=== PATIENT | male | born 1960 | race Caucasian/White ===

== ENCOUNTER 2020-06-29 12:31 | Inpatient (IN) ==
[2020-06-29 13:58] LABS: Basophils # 0.1 K/mcL (0.0-0.2); Basophils % 0.4 %; Eosinophils # 0.1 K/mcL (0.0-0.6); Eosinophils % 0.7 %; Hematocrit 43.9 % (37.5-50.1); Hemoglobin 14.3 g/dL (12.9-16.9); Immature Granulocytes % 0.7 % (0-4); Lymphocytes % 13.4 %; Mean Corpuscular HGB Conc 32.6 g/dL (31.6-35.5); Mean Corpuscular Volume 92.2 fL (83.0-100.0); Mean Platelet Volume 9.2 fL (9.4-12.4); Monocytes # 1.1 K/mcL (0.0-1.3); Monocytes % 7.7 %; Neutrophils # 11.5 K/mcL (1.6-8.9); Platelet Count 455 K/mcL (140-400); Red Blood Count 4.76 M/mcL (4.19-5.50); Red Cell Distribution Width 13.2 % (11.5-14.5); Segmented Neutrophils % 77.1 %; White Blood Count 14.9 K/mcL (4.3-11.1)
[2020-06-29 14:35] LABS: BUN/Creatinine Ratio 12 (6-26); Blood Urea Nitrogen 9 mg/dL (8-23); Calcium 8.6 mg/dL (8.6-10.3); Carbon Dioxide 23 mEq/L (23-29); Chloride 105 mEq/L (98-107); Glucose 117 mg/dL (70-105); Osmolality,Calculated 284 (280-300); Potassium 4.1 mEq/L (3.5-5.1); Sodium 137 mEq/L (136-145); eGFR For African Americans > 60 (> 60); eGFR For Non-African Americans > 60 (> 60)
[2020-06-29] MEDS ORDERED: Isovue-370 500 ML BOTTLE IVP ONE (16:06)
[2020-06-29] MEDS ORDERED: Piperacillin/Tazobactam 3.375 GM in 0.9 % Sodium Chloride Mini Bag 100 ML IVPB SCH (17:00)
[2020-06-29] MEDS ORDERED: Vancomycin 1,500 MG/265 ML IV.SOLN IVPB STA (17:44)
[2020-06-29] MEDS ORDERED: *HR* Heparin 5,000 UNIT/ML VIAL IVP ONE (17:53)
[2020-06-29] MEDS ORDERED: *HR* Heparin 5,000 UNIT/ML VIAL IVP PRN ×2 (17:53)
[2020-06-29] MEDS ORDERED: Piperacillin/Tazobactam 3.375 GM in 0.9 % Sodium Chloride Mini Bag 100 ML IVPB ONE (18:00)
[2020-06-29 18:25] LABS: Mean Corpuscular HGB Conc 31.8 g/dL (31.6-35.5); Mean Corpuscular Volume 94.2 fL (83.0-100.0); Mean Platelet Volume 8.7 fL (9.4-12.4); Platelet Count 421 K/mcL (140-400); Red Blood Count 4.67 M/mcL (4.19-5.50); Red Cell Distribution Width 13.3 % (11.5-14.5); White Blood Count 11.5 K/mcL (4.3-11.1)
[2020-06-29 18:35] LABS: INR 1.1; Prothrombin Time 13.2 Seconds (9.4-12.1)
[2020-06-29] MEDS: Heparin 25,000UNIT/250ML 1/2NS 25,000 UNIT/250 ML IV.SOLN IVC SCH (18:35)
[2020-06-29 18:36] LABS: Heparin anti-factor XA UFH < 0.04 IU/mL (0.30-0.70)
[2020-06-29] MEDS ORDERED: Ondansetron 4 MG/2 ML VIAL IVP PRN (21:38)
[2020-06-29] MEDS ORDERED: Acetaminophen 325 MG TABLET PO PRN (21:38)
[2020-06-29] MEDS ORDERED: Melatonin 3 MG TABLET PO PRN (21:38)
[2020-06-29] MEDS ORDERED: Naloxone 0.4 MG/ML INJ IVP PRN (21:38)
[2020-06-30] MEDS: Piperacillin/Tazobactam 3.375 GM in 0.9 % Sodium Chloride Mini Bag 100 ML IVPB SCH ×4 (01:54→23:25)
[2020-06-30] MEDS: Vancomycin 1,250 MG/262.5 ML IV.SOLN IVPB SCH ×2 (06:18→17:10)
[2020-06-30] MEDS: Heparin 25,000UNIT/250ML 1/2NS 25,000 UNIT/250 ML IV.SOLN IVC SCH (11:37)
[2020-07-01] MEDS ORDERED: Haloperidol Lactate 5 MG/ML VIAL IVP ONE (01:55)
[2020-07-01] MEDS: Heparin 25,000UNIT/250ML 1/2NS 25,000 UNIT/250 ML IV.SOLN IVC SCH ×2 (02:07→16:27)
[2020-07-01] MEDS: Vancomycin 1,250 MG/262.5 ML IV.SOLN IVPB SCH (04:50)
[2020-07-01 05:34] LABS: Basophils # 0.1 K/mcL (0.0-0.2); Basophils % 0.6 %; Eosinophils # 0.2 K/mcL (0.0-0.6); Eosinophils % 1.3 %; Hematocrit 40.4 % (37.5-50.1); Hemoglobin 12.9 g/dL (12.9-16.9); Immature Granulocytes % 0.8 % (0-4); Lymphocytes # 2.4 K/mcL (0.6-4.6); Lymphocytes % 16.9 %; Mean Corpuscular HGB Conc 31.9 g/dL (31.6-35.5); Mean Corpuscular Hemoglobin 29.9 pg (28.0-33.3); Mean Corpuscular Volume 93.5 fL (83.0-100.0); Mean Platelet Volume 9.3 fL (9.4-12.4); Monocytes # 1.2 K/mcL (0.0-1.3); Monocytes % 8.6 %; Neutrophils # 10.3 K/mcL (1.6-8.9); Platelet Count 425 K/mcL (140-400); Red Blood Count 4.32 M/mcL (4.19-5.50); Red Cell Distribution Width 13.3 % (11.5-14.5); Segmented Neutrophils % 71.8 %; White Blood Count 14.4 K/mcL (4.3-11.1)
[2020-07-01] MEDS ORDERED: *HR* LORazepam 2 MG/ML VIAL IVP ONE (05:55)
[2020-07-01] MEDS: Aspirin Enteric Coated 81 MG Tablet PO SCH (09:01)
[2020-07-01] MEDS: Piperacillin/Tazobactam 3.375 GM in 0.9 % Sodium Chloride Mini Bag 100 ML IVPB SCH ×2 (09:02→15:58)
[2020-07-01 09:56] LABS: BUN/Creatinine Ratio 17 (6-26); Blood Urea Nitrogen 13 mg/dL (8-23); Carbon Dioxide 24 mEq/L (23-29); Chloride 109 mEq/L (98-107); Glucose 124 mg/dL (70-105); Osmolality,Calculated 290 (280-300); Sodium 139 mEq/L (136-145); eGFR For African Americans > 60 (> 60); eGFR For Non-African Americans > 60 (> 60)
[2020-07-02] MEDS: Piperacillin/Tazobactam 3.375 GM in 0.9 % Sodium Chloride Mini Bag 100 ML IVPB SCH ×4 (00:27→23:17)
[2020-07-02 00:36] LABS: Basophils # 0.1 K/mcL (0.0-0.2); Basophils % 0.6 %; Eosinophils # 0.2 K/mcL (0.0-0.6); Eosinophils % 1.6 %; Hematocrit 39.9 % (37.5-50.1); Hemoglobin 12.8 g/dL (12.9-16.9); Immature Granulocytes % 0.6 % (0-4); Lymphocytes # 2.4 K/mcL (0.6-4.6); Lymphocytes % 17.2 %; Mean Corpuscular HGB Conc 32.1 g/dL (31.6-35.5); Mean Corpuscular Hemoglobin 30.6 pg (28.0-33.3); Mean Corpuscular Volume 95.5 fL (83.0-100.0); Monocytes # 1.2 K/mcL (0.0-1.3); Monocytes % 8.3 %; Platelet Count 397 K/mcL (140-400); Red Blood Count 4.18 M/mcL (4.19-5.50); Red Cell Distribution Width 13.4 % (11.5-14.5); Segmented Neutrophils % 71.7 %
[2020-07-02 00:53] LABS: BUN/Creatinine Ratio 19 (6-26); Blood Urea Nitrogen 14 mg/dL (8-23); Carbon Dioxide 22 mEq/L (23-29); Chloride 108 mEq/L (98-107); Glucose 104 mg/dL (70-105); Osmolality,Calculated 285 (280-300); Potassium 4.1 mEq/L (3.5-5.1); Sodium 137 mEq/L (136-145); eGFR For African Americans > 60 (> 60); eGFR For Non-African Americans > 60 (> 60)
[2020-07-02] MEDS: Heparin 25,000UNIT/250ML 1/2NS 25,000 UNIT/250 ML IV.SOLN IVC SCH (05:21)
[2020-07-02] MEDS: Aspirin Enteric Coated 81 MG Tablet PO SCH (08:24)
[2020-07-02] MEDS ORDERED: Heparin 1,000 UNITS/500 mL 500 ML ONE ×2 (11:33→13:21)
[2020-07-02] MEDS ORDERED: *HR* Heparin 10,000 UNIT/10 ML VIAL ONE (11:33)
[2020-07-02] MEDS ORDERED: 0.9 % Sodium Chloride 2,000 ML ONE (11:33)
[2020-07-02] MEDS ORDERED: Isovue-300 200 mL Infus..BTL ONE (11:34)
[2020-07-02] MEDS ORDERED: *HR* Midazolam HCl 2 MG/2 ML VIAL ONE ×2 (11:52→13:17)
[2020-07-02] MEDS ORDERED: *HR* FentaNYL (PF) 100 MCG/2 ML VIAL ONE ×2 (11:53→13:37)
[2020-07-02] MEDS ORDERED: *HR* Labetalol 100 MG/20 ML MDV ONE (12:48)
[2020-07-02] MEDS ORDERED: Haloperidol Lactate 5 MG/ML VIAL IVP ONE (14:28)
[2020-07-02] MEDS ORDERED: Prochlorperazine 10 MG/2 ML VIAL ONE (14:45)
[2020-07-02] MEDS: Prochlorperazine 10 MG/2 ML VIAL IVP ONE ×2 (14:47→14:50)
[2020-07-02] MEDS ORDERED: *HR* HYDROcodone/Acet 5/325 mg TABLET PO PRN (14:48)
[2020-07-02] MEDS ORDERED: *HR* Atropine Sulfate 1 MG/10 ML SYRINGE ONE (15:01)
[2020-07-02] MEDS ORDERED: *HR* Labetalol 20 MG/4 ML SYRINGE IVP ONE ×2 (15:03)
[2020-07-02] MEDS: Dexmedetomidine HCl 400 MCG/100 ML MLS IVC SCH ×2 (15:14→19:35)
[2020-07-02] MEDS ORDERED: Ziprasidone 20 MG in Water for inj. (sterile) 1 ML IM ONE (15:44)
[2020-07-02] MEDS: Ipratropium/Albuterol Neb 3 ML IH SCH ×3 (16:09→23:44)
[2020-07-03] MEDS: Ipratropium/Albuterol Neb 3 ML IH SCH ×6 (04:04→23:02)
[2020-07-03 05:08] LABS: Basophils # 0.1 K/mcL (0.0-0.2); Basophils % 0.4 %; Eosinophils # 0.2 K/mcL (0.0-0.6); Eosinophils % 1.6 %; Hematocrit 42.5 % (37.5-50.1); Hemoglobin 13.2 g/dL (12.9-16.9); Immature Granulocytes % 0.5 % (0-4); Lymphocytes # 1.5 K/mcL (0.6-4.6); Mean Corpuscular HGB Conc 31.1 g/dL (31.6-35.5); Mean Corpuscular Hemoglobin 29.7 pg (28.0-33.3); Mean Corpuscular Volume 95.7 fL (83.0-100.0); Mean Platelet Volume 8.6 fL (9.4-12.4); Monocytes # 0.9 K/mcL (0.0-1.3); Monocytes % 7.8 %; Neutrophils # 8.9 K/mcL (1.6-8.9); Platelet Count 358 K/mcL (140-400); Red Blood Count 4.44 M/mcL (4.19-5.50); Red Cell Distribution Width 13.4 % (11.5-14.5); Segmented Neutrophils % 76.7 %; White Blood Count 11.6 K/mcL (4.3-11.1)
[2020-07-03 05:29] LABS: BUN/Creatinine Ratio 14 (6-26); Blood Urea Nitrogen 11 mg/dL (8-23); Calcium 8.2 mg/dL (8.6-10.3); Carbon Dioxide 22 mEq/L (23-29); Chloride 111 mEq/L (98-107); Glucose 126 mg/dL (70-105); Osmolality,Calculated 295 (280-300); Sodium 142 mEq/L (136-145); Vancomycin,Trough 10 mcg/mL (5-10); eGFR For African Americans > 60 (> 60); eGFR For Non-African Americans > 60 (> 60)
[2020-07-03] MEDS ORDERED: Vancomycin 1,250 MG/262.5 ML IV.SOLN IVPB SCH (06:00)
[2020-07-03] MEDS ORDERED: Heparin 1,000 UNITS/500 mL 500 ML ONE ×3 (07:04→11:01)
[2020-07-03] MEDS ORDERED: *HR* Rocuronium Bromide 50 MG/5 ML VIAL ONE (07:11)
[2020-07-03] MEDS ORDERED: *HR* Midazolam HCl 2 MG/2 ML VIAL ONE (07:11)
[2020-07-03] MEDS ORDERED: Dexamethasone 4 MG/ML VIAL ONE (07:11)
[2020-07-03] MEDS ORDERED: Lidocaine -MPF 2% 2 ML VIAL ONE (07:11)
[2020-07-03] MEDS ORDERED: Ondansetron 4 MG/2 ML VIAL ONE (07:11)
[2020-07-03] MEDS ORDERED: *HR* Propofol 200 MG/20 ML VIAL IVP ONE (07:11)
[2020-07-03] MEDS ORDERED: Lidocaine HCL 4 ML Topical Solution (Laryng-O-Jet Kit Sterile Pak) TP ONE (07:11)
[2020-07-03] MEDS ORDERED: *HR* FentaNYL (PF) 100 MCG/2 ML VIAL ONE ×2 (07:11→12:02)
[2020-07-03] MEDS ORDERED: Ondansetron 4 MG/2 ML VIAL IVP PRN ×2 (07:14→14:08)
[2020-07-03] MEDS ORDERED: *HR* HYDROmorphone PF 0.5 MG/0.5 ML SYRINGE IVP PRN ×2 (07:14→14:08)
[2020-07-03] MEDS ORDERED: *HR* Meperidine 25 MG/ML SYRINGE IVP PRN (07:14)
[2020-07-03] MEDS ORDERED: Albuterol 2.5 MG/3 ML NEBULIZER ONE (07:44)
[2020-07-03] MEDS ORDERED: ceFAZolin 1,000 MG, Sodium Chloride IRRigation 1,000 ML IR ONE (07:45)
[2020-07-03] MEDS ORDERED: Albuterol 2.5 MG/3 ML NEBULIZER IH ONE ×3 (07:46→14:08)
[2020-07-03] MEDS ORDERED: Isovue-300 50ML VIAL ONE (08:11)
[2020-07-03] MEDS ORDERED: BuPROPion XL (24 HR) 150 MG TABLET PO SCH (09:00)
[2020-07-03] MEDS ORDERED: *HR* Heparin 5,000 UNIT/ML VIAL ONE ×2 (09:29→11:51)
[2020-07-03] MEDS ORDERED: Heparin 1,000 UNITS/500 mL 1,000 ML ONE (09:38)
[2020-07-03 10:29] LABS: ABG Base Excess -1 mEq/L (-2 to 3); ABG Chloride 109 mEq/L (98-107); ABG Glucose 149 mg/dL (60-95); ABG HCO3 22 mEq/L (21-27); ABG Ionized Calcium 1.16 mmol/L (1.15-1.35); ABG Oxygen Saturation 100 % (95-98); ABG PCO2 32 mmHg (35-45); ABG PH 7.45 pH Units (7.32-7.45); ABG PO2 183 mmHg (85-104); ABG TCO2 23 mEq/L (20-26)
[2020-07-03] MEDS ORDERED: Heparin 25,000UNIT/250ML 1/2NS 25,000 UNIT/250 ML IV.SOLN IVC ONE ×2 (11:30→14:08)
[2020-07-03] MEDS ORDERED: EPHEDrine 50 MG/ML VIAL ONE (11:50)
[2020-07-03] MEDS: Piperacillin/Tazobactam 3.375 GM in 0.9 % Sodium Chloride Mini Bag 100 ML IVPB SCH ×2 (12:55→15:35)
[2020-07-03] MEDS ORDERED: *HR* Labetalol 20 MG/4 ML SYRINGE IVP PRN (14:08)
[2020-07-03] MEDS ORDERED: Naloxone 0.4 MG/ML INJ IVP PRN ×2 (14:08)
[2020-07-03] MEDS ORDERED: Acetaminophen 325 MG TABLET PO PRN (14:08)
[2020-07-03] MEDS ORDERED: Melatonin 3 MG TABLET PO PRN (14:08)
[2020-07-03] MEDS ORDERED: *HR* HYDROcodone/Acet 5/325 mg TABLET PO PRN (14:08)
[2020-07-03] MEDS: Aspirin Enteric Coated 81 MG Tablet PO SCH (15:07)
[2020-07-03] MEDS ORDERED: *HR* Heparin 5,000 UNIT/ML VIAL IVP ONE (17:00)
[2020-07-03] MEDS ORDERED: *HR* Heparin 5,000 UNIT/ML VIAL IVP PRN ×2 (17:00)
[2020-07-03] MEDS ORDERED: Haloperidol Lactate 5 MG/ML VIAL IVP ONE (17:02)
[2020-07-03] MEDS: Heparin 25,000UNIT/250ML 1/2NS 25,000 UNIT/250 ML IV.SOLN IVC SCH (17:34)
[2020-07-03] MEDS: Dexmedetomidine HCl 400 MCG/100 ML MLS IVC SCH (17:38)
[2020-07-03] MEDS: Vancomycin 1,250 MG/262.5 ML IV.SOLN IVPB SCH (17:44)
[2020-07-03 18:12] LABS: Hematocrit 37.7 % (37.5-50.1); Hemoglobin 12.1 g/dL (12.9-16.9); Mean Corpuscular HGB Conc 32.1 g/dL (31.6-35.5); Mean Corpuscular Hemoglobin 30.3 pg (28.0-33.3); Mean Corpuscular Volume 94.5 fL (83.0-100.0); Mean Platelet Volume 9.1 fL (9.4-12.4); Platelet Count 324 K/mcL (140-400); Red Blood Count 3.99 M/mcL (4.19-5.50); Red Cell Distribution Width 13.6 % (11.5-14.5)
[2020-07-03 18:13] LABS: White Blood Count 21.7 K/mcL (4.3-11.1)
[2020-07-03 18:20] LABS: Heparin anti-factor XA UFH 0.45 IU/mL (0.30-0.70); INR 1.4; Prothrombin Time 15.5 Seconds (9.4-12.1)
[2020-07-03] MEDS: QUEtiapine Fumarate 25 MG TABLET PO SCH (20:01)
[2020-07-04] MEDS: Piperacillin/Tazobactam 3.375 GM in 0.9 % Sodium Chloride Mini Bag 100 ML IVPB SCH ×3 (00:42→16:10)
[2020-07-04 02:25] LABS: Basophils % 0.2 %; Eosinophils % 0.1 %; Hematocrit 31.4 % (37.5-50.1); Lymphocytes # 1.6 K/mcL (0.6-4.6); Lymphocytes % 9.6 %; Mean Corpuscular HGB Conc 31.8 g/dL (31.6-35.5); Mean Corpuscular Hemoglobin 29.9 pg (28.0-33.3); Mean Platelet Volume 9.2 fL (9.4-12.4); Monocytes # 1.5 K/mcL (0.0-1.3); Monocytes % 8.7 %; Neutrophils # 13.7 K/mcL (1.6-8.9); Platelet Count 269 K/mcL (140-400); Red Blood Count 3.34 M/mcL (4.19-5.50); Red Cell Distribution Width 13.8 % (11.5-14.5); Segmented Neutrophils % 80.4 %
[2020-07-04 02:38] LABS: BUN/Creatinine Ratio 14 (6-26); Blood Urea Nitrogen 17 mg/dL (8-23); Calcium 7.4 mg/dL (8.6-10.3); Carbon Dioxide 22 mEq/L (23-29); Chloride 110 mEq/L (98-107); Glucose 153 mg/dL (70-105); Osmolality,Calculated 293 (280-300); Potassium 3.9 mEq/L (3.5-5.1); Sodium 139 mEq/L (136-145); eGFR For African Americans > 60 (> 60); eGFR For Non-African Americans 60 (> 60)
[2020-07-04] MEDS: Dexmedetomidine HCl 400 MCG/100 ML MLS IVC SCH ×4 (03:10→23:40)
[2020-07-04] MEDS: Ipratropium/Albuterol Neb 3 ML IH SCH ×6 (03:38→22:20)
[2020-07-04] MEDS: Vancomycin 1,250 MG/262.5 ML IV.SOLN IVPB SCH ×2 (05:29→18:35)
[2020-07-04] MEDS ORDERED: Furosemide 40 MG/4 ML VIAL IVP ONE (08:34)
[2020-07-04 08:50] LABS: Albumin 2.9 g/dL (3.5-5.7); Albumin/Globulin Ratio 1.1 (1.1-2.2); Bilirubin,Direct 0.1 mg/dL (0.0-0.2); Bilirubin,Indirect 0.4 mg/dL (0.0-1.0); Bilirubin,Total 0.5 mg/dL (0.3-1.0); Globulin 2.7 g/dL (2.4-3.5); Total Protein 5.6 g/dL (6.4-8.9)
[2020-07-04] MEDS ORDERED: BuPROPion XL (24 HR) 150 MG TABLET PO SCH (09:00)
[2020-07-04] MEDS ORDERED: Aspirin Enteric Coated 81 MG Tablet PO SCH (09:00)
[2020-07-04] MEDS: Heparin 25,000UNIT/250ML 1/2NS 25,000 UNIT/250 ML IV.SOLN IVC SCH ×2 (11:10→23:36)
[2020-07-04] MEDS ORDERED: Haloperidol Lactate 5 MG/ML VIAL IVP PRN (11:25)
[2020-07-04] MEDS ORDERED: 0.9 % Sodium Chloride 1,000 ML IVC SCH (13:30)
[2020-07-04] MEDS ORDERED: Lidocaine/EPI 1:200k 1% PF 10 ML VIAL ONE (19:02)
[2020-07-04] MEDS ORDERED: Lidocaine 1% 20 ML MDV ONE (19:18)
[2020-07-04] MEDS ORDERED: Dexamethasone 4 MG/ML VIAL ONE (19:49)
[2020-07-04] MEDS ORDERED: Ondansetron 4 MG/2 ML VIAL ONE (19:49)
[2020-07-04] MEDS ORDERED: *HR* Propofol 200 MG/20 ML VIAL IVP ONE (19:49)
[2020-07-04] MEDS ORDERED: Lidocaine -MPF 2% 2 ML VIAL ONE (19:49)
[2020-07-04] MEDS ORDERED: *HR* FentaNYL (PF) 100 MCG/2 ML VIAL ONE (19:49)
[2020-07-04] MEDS: QUEtiapine Fumarate 25 MG TABLET PO SCH (21:41)
[2020-07-04] MEDS ORDERED: *HR* Labetalol 20 MG/4 ML SYRINGE IVP PRN (22:02)
[2020-07-04] MEDS ORDERED: Naloxone 0.4 MG/ML INJ IVP PRN (22:02)
[2020-07-04] MEDS ORDERED: Ondansetron 4 MG/2 ML VIAL IVP PRN (22:02)
[2020-07-04] MEDS ORDERED: Melatonin 3 MG TABLET PO PRN (22:02)
[2020-07-04] MEDS ORDERED: Acetaminophen 325 MG TABLET PO PRN (22:02)
[2020-07-04] MEDS ORDERED: *HR* Heparin 5,000 UNIT/ML VIAL IVP PRN ×2 (22:02)
[2020-07-04] MEDS ORDERED: Ipratropium/Albuterol Neb 3 ML ONE (22:18)
[2020-07-04] MEDS: 0.9 % Sodium Chloride 1,000 ML IVC SCH (23:35)
[2020-07-05] MEDS: Piperacillin/Tazobactam 3.375 GM in 0.9 % Sodium Chloride Mini Bag 100 ML IVPB SCH ×3 (00:54→15:18)
[2020-07-05 01:02] LABS: Basophils % 0.2 %; Eosinophils % 0.2 %; Hematocrit 28.6 % (37.5-50.1); Hemoglobin 9.2 g/dL (12.9-16.9); Immature Granulocytes % 0.7 % (0-4); Lymphocytes # 0.8 K/mcL (0.6-4.6); Lymphocytes % 4.5 %; Mean Corpuscular HGB Conc 32.2 g/dL (31.6-35.5); Mean Corpuscular Hemoglobin 30.3 pg (28.0-33.3); Mean Corpuscular Volume 94.1 fL (83.0-100.0); Mean Platelet Volume 9.4 fL (9.4-12.4); Monocytes # 1.5 K/mcL (0.0-1.3); Neutrophils # 16.2 K/mcL (1.6-8.9); Platelet Count 293 K/mcL (140-400); Red Blood Count 3.04 M/mcL (4.19-5.50); Red Cell Distribution Width 13.9 % (11.5-14.5); Segmented Neutrophils % 86.4 %; White Blood Count 18.7 K/mcL (4.3-11.1)
[2020-07-05 01:46] LABS: Folate 12.2 ng/mL (3.0-16.0)
[2020-07-05 02:26] LABS: Alanine Aminotransferase 46 Units/L (7-52); Albumin/Globulin Ratio 1.1 (1.1-2.2); Alkaline Phosphatase 50 Units/L (34-104); Aspartate Amino Transferase 92 Units/L (13-39); BUN/Creatinine Ratio 19 (6-26); Bilirubin,Direct 0.2 mg/dL (0.0-0.2); Bilirubin,Indirect 0.3 mg/dL (0.0-1.0); Bilirubin,Total 0.5 mg/dL (0.3-1.0); Blood Urea Nitrogen 28 mg/dL (8-23); Calcium 7.3 mg/dL (8.6-10.3); Carbon Dioxide 19 mEq/L (23-29); Chloride 109 mEq/L (98-107); Ferritin 301 ng/mL (20-250); Globulin 2.8 g/dL (2.4-3.5); Glucose 123 mg/dL (70-105); Iron < 10 mcg/dL (65-175); Magnesium 2.2 mg/dL (1.6-2.6); Osmolality,Calculated 293 (280-300); Potassium 3.9 mEq/L (3.5-5.1); Sodium 138 mEq/L (136-145); Thyroid Stimulating Hormone 1.265 mcIU/mL (0.340-5.600); Total Protein 5.8 g/dL (6.4-8.9); Transferrin 167 mg/dL (203-362); eGFR For African Americans 57 (> 60); eGFR For Non-African Americans 47 (> 60)
[2020-07-05] MEDS: *HR* HYDROcodone/Acet 5/325 mg TABLET PO PRN ×3 (03:04→16:12)
[2020-07-05] MEDS: Ipratropium/Albuterol Neb 3 ML IH SCH ×6 (03:35→23:02)
[2020-07-05] MEDS: Dexmedetomidine HCl 400 MCG/100 ML MLS IVC SCH ×4 (03:49→20:34)
[2020-07-05] MEDS: Aspirin Enteric Coated 81 MG Tablet PO SCH (07:40)
[2020-07-05] MEDS: BuPROPion XL (24 HR) 150 MG TABLET PO SCH (07:41)
[2020-07-05] MEDS ORDERED: DAPTOmycin 500 MG in 0.9 % Sodium Chloride 100 ML IVPB SCH (08:00)
[2020-07-05 10:11] LABS: Creatine Kinase 3331 Units/L (30-223)
[2020-07-05] MEDS: Haloperidol Lactate 5 MG/ML VIAL IVP PRN ×2 (12:45→20:09)
[2020-07-05] MEDS: 0.9 % Sodium Chloride 1,000 ML IVC SCH (14:30)
[2020-07-05] MEDS: Heparin 25,000UNIT/250ML 1/2NS 25,000 UNIT/250 ML IV.SOLN IVC SCH (14:53)
[2020-07-05] MEDS ORDERED: Vancomycin 1,750 MG in 0.9 % Sodium Chloride 250 ML IVPB SCH (15:00)
[2020-07-05] MEDS: QUEtiapine Fumarate 25 MG TABLET PO SCH (20:08)
[2020-07-05] MEDS ORDERED: *HR* LORazepam 2 MG/ML VIAL IVP PRN (21:25)
[2020-07-05] MEDS ORDERED: *HR* LORazepam 2 MG/ML VIAL ONE (21:26)
[2020-07-06] MEDS: Piperacillin/Tazobactam 3.375 GM in 0.9 % Sodium Chloride Mini Bag 100 ML IVPB SCH ×3 (00:57→16:11)
[2020-07-06 01:12] LABS: Basophils % 0.2 %; Eosinophils # 0.2 K/mcL (0.0-0.6); Hematocrit 26.5 % (37.5-50.1); Hemoglobin 8.5 g/dL (12.9-16.9); Immature Granulocytes % 1.6 % (0-4); Lymphocytes # 1.6 K/mcL (0.6-4.6); Lymphocytes % 9.6 %; Mean Corpuscular HGB Conc 32.1 g/dL (31.6-35.5); Mean Corpuscular Hemoglobin 30.8 pg (28.0-33.3); Mean Platelet Volume 9.6 fL (9.4-12.4); Monocytes # 1.6 K/mcL (0.0-1.3); Monocytes % 9.9 %; Neutrophils # 12.7 K/mcL (1.6-8.9); Nucleated Red Blood Cells 0.1 /100 WBC (0); Platelet Count 276 K/mcL (140-400); Red Blood Count 2.76 M/mcL (4.19-5.50); Segmented Neutrophils % 77.7 %; White Blood Count 16.3 K/mcL (4.3-11.1)
[2020-07-06 01:34] LABS: BUN/Creatinine Ratio 20 (6-26); Blood Urea Nitrogen 24 mg/dL (8-23); Calcium 7.5 mg/dL (8.6-10.3); Carbon Dioxide 21 mEq/L (23-29); Chloride 104 mEq/L (98-107); Glucose 120 mg/dL (70-105); Magnesium 2.5 mg/dL (1.6-2.6); Osmolality,Calculated 281 (280-300); Potassium 3.7 mEq/L (3.5-5.1); Sodium 133 mEq/L (136-145); eGFR For African Americans > 60 (> 60); eGFR For Non-African Americans > 60 (> 60)
[2020-07-06] MEDS: Dexmedetomidine HCl 400 MCG/100 ML MLS IVC SCH ×4 (02:26→21:07)
[2020-07-06] MEDS: Ipratropium/Albuterol Neb 3 ML IH SCH ×6 (04:15→23:06)
[2020-07-06 06:21] LABS: Vancomycin,Random 8 mcg/mL
[2020-07-06] MEDS: BuPROPion XL (24 HR) 150 MG TABLET PO SCH (08:10)
[2020-07-06] MEDS: Aspirin Enteric Coated 81 MG Tablet PO SCH (08:10)
[2020-07-06] MEDS ORDERED: Furosemide 40 MG/4 ML VIAL IVP ONE (10:27)
[2020-07-06] MEDS: Heparin 25,000UNIT/250ML 1/2NS 25,000 UNIT/250 ML IV.SOLN IVC SCH (11:05)
[2020-07-06] MEDS: *HR* HYDROcodone/Acet 5/325 mg TABLET PO PRN ×2 (11:12→20:41)
[2020-07-06] MEDS: *HR* Rivaroxaban 10 MG TABLET PO SCH (16:12)
[2020-07-06] MEDS: QUEtiapine Fumarate 25 MG TABLET PO SCH (20:41)
[2020-07-06] MEDS: Haloperidol Lactate 5 MG/ML VIAL IVP PRN (21:12)
[2020-07-07] MEDS: Piperacillin/Tazobactam 3.375 GM in 0.9 % Sodium Chloride Mini Bag 100 ML IVPB SCH ×3 (00:46→16:23)
[2020-07-07] MEDS: Dexmedetomidine HCl 400 MCG/100 ML MLS IVC SCH ×2 (02:53→14:22)
[2020-07-07 02:57] LABS: Basophils # 0.1 K/mcL (0.0-0.2); Basophils % 0.6 %; Eosinophils # 0.4 K/mcL (0.0-0.6); Eosinophils % 2.6 %; Hematocrit 26.6 % (37.5-50.1); Hemoglobin 8.6 g/dL (12.9-16.9); Immature Granulocytes % 2.3 % (0-4); Lymphocytes # 1.7 K/mcL (0.6-4.6); Lymphocytes % 11.4 %; Mean Corpuscular HGB Conc 32.3 g/dL (31.6-35.5); Mean Corpuscular Hemoglobin 30.3 pg (28.0-33.3); Mean Corpuscular Volume 93.7 fL (83.0-100.0); Mean Platelet Volume 9.7 fL (9.4-12.4); Monocytes # 1.3 K/mcL (0.0-1.3); Monocytes % 8.8 %; Neutrophils # 10.8 K/mcL (1.6-8.9); Nucleated Red Blood Cells 0.3 /100 WBC (0); Platelet Count 306 K/mcL (140-400); Red Blood Count 2.84 M/mcL (4.19-5.50); Red Cell Distribution Width 13.7 % (11.5-14.5); Segmented Neutrophils % 74.3 %; White Blood Count 14.5 K/mcL (4.3-11.1)
[2020-07-07] MEDS: Haloperidol Lactate 5 MG/ML VIAL IVP PRN (03:07)
[2020-07-07] MEDS: *HR* HYDROcodone/Acet 5/325 mg TABLET PO PRN ×2 (03:08→07:48)
[2020-07-07 03:15] LABS: BUN/Creatinine Ratio 19 (6-26); Blood Urea Nitrogen 20 mg/dL (8-23); Calcium 7.6 mg/dL (8.6-10.3); Carbon Dioxide 20 mEq/L (23-29); Chloride 102 mEq/L (98-107); Glucose 119 mg/dL (70-105); Magnesium 2.4 mg/dL (1.6-2.6); Osmolality,Calculated 272 (280-300); Potassium 3.6 mEq/L (3.5-5.1); Sodium 129 mEq/L (136-145); eGFR For African Americans > 60 (> 60); eGFR For Non-African Americans > 60 (> 60)
[2020-07-07] MEDS: Ipratropium/Albuterol Neb 3 ML IH SCH ×6 (03:55→23:11)
[2020-07-07 03:59] LABS: Estimated Average Glucose 140 mg/dl; Hemoglobin A1C 6.5 %
[2020-07-07] MEDS: BuPROPion XL (24 HR) 150 MG TABLET PO SCH (07:47)
[2020-07-07] MEDS: Aspirin Enteric Coated 81 MG Tablet PO SCH (07:47)
[2020-07-07] MEDS: Furosemide 40 MG/4 ML VIAL IVP SCH (07:49)
[2020-07-07] MEDS ORDERED: *HR* Midazolam HCl 5 MG/5 ML VIAL IVP ONE (10:50)
[2020-07-07 11:03] LABS: Homocysteine 16 umol/L (0-15)
[2020-07-07] MEDS: polyethylene glycoL 3350 17 GM POWD.PACK PO SCH (14:21)
[2020-07-07] MEDS: Acetaminophen IV 1,000 MG/100 ML BAG IVPB SCH ×2 (14:23→20:14)
[2020-07-07] MEDS: *HR* Rivaroxaban 10 MG TABLET PO SCH (16:23)
[2020-07-07] MEDS: QUEtiapine Fumarate 25 MG TABLET PO SCH ×2 (16:23→20:38)
[2020-07-07] MEDS: Sennosides/Docusate Sodium TABLET PO SCH (20:37)
[2020-07-07] MEDS: Melatonin 3 MG TABLET PO SCH (20:39)
[2020-07-08] MEDS: Dexmedetomidine HCl 400 MCG/100 ML MLS IVC SCH (00:13)
[2020-07-08] MEDS: Piperacillin/Tazobactam 3.375 GM in 0.9 % Sodium Chloride Mini Bag 100 ML IVPB SCH ×4 (00:14→23:57)
[2020-07-08] MEDS: Haloperidol Lactate 5 MG/ML VIAL IVP PRN ×3 (00:22→18:03)
[2020-07-08 01:55] LABS: Basophils # 0.1 K/mcL (0.0-0.2); Basophils % 0.4 %; Eosinophils # 0.4 K/mcL (0.0-0.6); Eosinophils % 2.5 %; Hematocrit 26.5 % (37.5-50.1); Hemoglobin 8.2 g/dL (12.9-16.9); Immature Granulocytes % 1.5 % (0-4); Lymphocytes # 1.2 K/mcL (0.6-4.6); Lymphocytes % 8.7 %; Mean Corpuscular HGB Conc 30.9 g/dL (31.6-35.5); Mean Corpuscular Hemoglobin 29.9 pg (28.0-33.3); Mean Corpuscular Volume 96.7 fL (83.0-100.0); Mean Platelet Volume 9.3 fL (9.4-12.4); Monocytes # 1.2 K/mcL (0.0-1.3); Monocytes % 8.5 %; Neutrophils # 10.9 K/mcL (1.6-8.9); Nucleated Red Blood Cells 0.3 /100 WBC (0); Platelet Count 327 K/mcL (140-400); Red Blood Count 2.74 M/mcL (4.19-5.50); Red Cell Distribution Width 14.2 % (11.5-14.5); Segmented Neutrophils % 78.4 %; White Blood Count 13.9 K/mcL (4.3-11.1)
[2020-07-08 03:14] LABS: BUN/Creatinine Ratio 18 (6-26); Blood Urea Nitrogen 17 mg/dL (8-23); Calcium 7.9 mg/dL (8.6-10.3); Carbon Dioxide 21 mEq/L (23-29); Chloride 105 mEq/L (98-107); Glucose 104 mg/dL (70-105); Magnesium 2.3 mg/dL (1.6-2.6); Osmolality,Calculated 284 (280-300); Potassium 3.4 mEq/L (3.5-5.1); Sodium 136 mEq/L (136-145); eGFR For African Americans > 60 (> 60); eGFR For Non-African Americans > 60 (> 60)
[2020-07-08] MEDS: Acetaminophen IV 1,000 MG/100 ML BAG IVPB SCH ×2 (04:06→11:56)
[2020-07-08] MEDS: Ipratropium/Albuterol Neb 3 ML IH SCH ×5 (04:29→19:43)
[2020-07-08] MEDS ORDERED: Potassium Chloride 40 MEQ, Lidocaine 1% 2 ML in 0.9 % Sodium Chloride 500 ML IVPB ONE (07:54)
[2020-07-08] MEDS: Furosemide 40 MG/4 ML VIAL IVP SCH (09:40)
[2020-07-08] MEDS: QUEtiapine Fumarate 25 MG TABLET PO SCH ×2 (09:50→21:27)
[2020-07-08] MEDS: BuPROPion XL (24 HR) 150 MG TABLET PO SCH (09:50)
[2020-07-08] MEDS: Aspirin Enteric Coated 81 MG Tablet PO SCH (09:50)
[2020-07-08] MEDS: Sennosides/Docusate Sodium TABLET PO SCH ×2 (09:50→21:27)
[2020-07-08] MEDS: polyethylene glycoL 3350 17 GM POWD.PACK PO SCH (11:56)
[2020-07-08] MEDS: *HR* Rivaroxaban 10 MG TABLET PO SCH (17:45)
[2020-07-08] MEDS: Melatonin 3 MG TABLET PO SCH (21:27)
[2020-07-09] MEDS: Haloperidol Lactate 5 MG/ML VIAL IVP PRN (00:02)
[2020-07-09] MEDS: Ipratropium/Albuterol Neb 3 ML IH SCH ×6 (00:19→20:03)
[2020-07-09] MEDS: Dexmedetomidine HCl 400 MCG/100 ML MLS IVC SCH ×3 (02:13→21:36)
[2020-07-09 07:23] LABS: Basophils # 0.1 K/mcL (0.0-0.2); Basophils % 0.4 %; Eosinophils # 0.2 K/mcL (0.0-0.6); Eosinophils % 1.7 %; Hematocrit 26.7 % (37.5-50.1); Hemoglobin 8.3 g/dL (12.9-16.9); Immature Granulocytes % 1.5 % (0-4); Lymphocytes # 1.3 K/mcL (0.6-4.6); Lymphocytes % 9.6 %; Mean Corpuscular HGB Conc 31.1 g/dL (31.6-35.5); Mean Corpuscular Hemoglobin 29.9 pg (28.0-33.3); Mean Platelet Volume 9.2 fL (9.4-12.4); Monocytes # 1.2 K/mcL (0.0-1.3); Monocytes % 8.6 %; Neutrophils # 10.9 K/mcL (1.6-8.9); Nucleated Red Blood Cells 0.1 /100 WBC (0); Platelet Count 397 K/mcL (140-400); Red Blood Count 2.78 M/mcL (4.19-5.50); Red Cell Distribution Width 14.6 % (11.5-14.5); Segmented Neutrophils % 78.2 %; White Blood Count 13.9 K/mcL (4.3-11.1)
[2020-07-09 07:46] LABS: Alanine Aminotransferase 52 Units/L (7-52); Albumin 2.7 g/dL (3.5-5.7); Alkaline Phosphatase 51 Units/L (34-104); Aspartate Amino Transferase 63 Units/L (13-39); BUN/Creatinine Ratio 14 (6-26); Bilirubin,Direct 0.2 mg/dL (0.0-0.2); Bilirubin,Indirect 0.6 mg/dL (0.0-1.0); Bilirubin,Total 0.8 mg/dL (0.3-1.0); Blood Urea Nitrogen 14 mg/dL (8-23); Calcium 7.9 mg/dL (8.6-10.3); Carbon Dioxide 24 mEq/L (23-29); Chloride 108 mEq/L (98-107); Globulin 2.6 g/dL (2.4-3.5); Glucose 96 mg/dL (70-105); Magnesium 2.2 mg/dL (1.6-2.6); Osmolality,Calculated 290 (280-300); Potassium 3.5 mEq/L (3.5-5.1); Sodium 140 mEq/L (136-145); Total Protein 5.3 g/dL (6.4-8.9); eGFR For African Americans > 60 (> 60); eGFR For Non-African Americans > 60 (> 60)
[2020-07-09] MEDS: BuPROPion XL (24 HR) 150 MG TABLET PO SCH (08:38)
[2020-07-09] MEDS: Sennosides/Docusate Sodium TABLET PO SCH (08:38)
[2020-07-09] MEDS: Aspirin Enteric Coated 81 MG Tablet PO SCH (08:38)
[2020-07-09] MEDS: QUEtiapine Fumarate 25 MG TABLET PO SCH ×2 (08:38→19:47)
[2020-07-09] MEDS: Furosemide 40 MG/4 ML VIAL IVP SCH (08:39)
[2020-07-09] MEDS: Piperacillin/Tazobactam 3.375 GM in 0.9 % Sodium Chloride Mini Bag 100 ML IVPB SCH ×2 (08:39→17:02)
[2020-07-09] MEDS: polyethylene glycoL 3350 17 GM POWD.PACK PO SCH (08:39)
[2020-07-09] MEDS: *HR* Rivaroxaban 10 MG TABLET PO SCH (17:02)
[2020-07-09] MEDS: Melatonin 3 MG TABLET PO SCH (19:47)
[2020-07-09] MEDS ORDERED: Ipratropium/Albuterol Neb 3 ML IH PRN (22:06)
[2020-07-10] MEDS: Piperacillin/Tazobactam 3.375 GM in 0.9 % Sodium Chloride Mini Bag 100 ML IVPB SCH ×3 (00:12→15:00)
[2020-07-10 01:51] LABS: Basophils # 0.1 K/mcL (0.0-0.2); Basophils % 0.4 %; Eosinophils # 0.4 K/mcL (0.0-0.6); Eosinophils % 3.1 %; Hematocrit 26.8 % (37.5-50.1); Hemoglobin 8.4 g/dL (12.9-16.9); Immature Granulocytes % 1.3 % (0-4); Lymphocytes # 1.5 K/mcL (0.6-4.6); Lymphocytes % 12.3 %; Mean Corpuscular HGB Conc 31.3 g/dL (31.6-35.5); Mean Corpuscular Hemoglobin 30.2 pg (28.0-33.3); Mean Corpuscular Volume 96.4 fL (83.0-100.0); Mean Platelet Volume 9.3 fL (9.4-12.4); Monocytes # 1.1 K/mcL (0.0-1.3); Monocytes % 9.1 %; Neutrophils # 9.2 K/mcL (1.6-8.9); Nucleated Red Blood Cells 0.2 /100 WBC (0); Platelet Count 400 K/mcL (140-400); Red Blood Count 2.78 M/mcL (4.19-5.50); Red Cell Distribution Width 14.8 % (11.5-14.5); Segmented Neutrophils % 73.8 %; White Blood Count 12.4 K/mcL (4.3-11.1)
[2020-07-10 02:12] LABS: BUN/Creatinine Ratio 14 (6-26); Blood Urea Nitrogen 14 mg/dL (8-23); Calcium 7.7 mg/dL (8.6-10.3); Carbon Dioxide 23 mEq/L (23-29); Chloride 107 mEq/L (98-107); Glucose 156 mg/dL (70-105); Magnesium 2.1 mg/dL (1.6-2.6); Osmolality,Calculated 286 (280-300); Potassium 3.4 mEq/L (3.5-5.1); Sodium 136 mEq/L (136-145); eGFR For African Americans > 60 (> 60); eGFR For Non-African Americans > 60 (> 60)
[2020-07-10] MEDS ORDERED: Potassium Chloride 40 MEQ, Lidocaine 1% 2 ML in 0.9 % Sodium Chloride 500 ML IVPB ONE (07:41)
[2020-07-10] MEDS: Furosemide 40 MG/4 ML VIAL IVP SCH (08:29)
[2020-07-10] MEDS: BuPROPion XL (24 HR) 150 MG TABLET PO SCH (08:32)
[2020-07-10] MEDS: Aspirin Enteric Coated 81 MG Tablet PO SCH (08:32)
[2020-07-10] MEDS: QUEtiapine Fumarate 25 MG TABLET PO SCH ×3 (08:32→20:07)
[2020-07-10] MEDS: polyethylene glycoL 3350 17 GM POWD.PACK PO SCH (08:43)
[2020-07-10 14:09] LABS: FACV Specimen WHOLE BLOOD
[2020-07-10 14:30] LABS: Fac V Leiden R506Q Mut Result NEGATIVE
[2020-07-10] MEDS: *HR* Rivaroxaban 10 MG TABLET PO SCH (16:52)
[2020-07-10] MEDS: Melatonin 3 MG TABLET PO SCH (20:07)
[2020-07-11] MEDS: Piperacillin/Tazobactam 3.375 GM in 0.9 % Sodium Chloride Mini Bag 100 ML IVPB SCH ×3 (00:52→15:49)
[2020-07-11 01:43] LABS: Basophils # 0.1 K/mcL (0.0-0.2); Basophils % 0.5 %; Eosinophils # 0.4 K/mcL (0.0-0.6); Eosinophils % 2.6 %; Hematocrit 27.1 % (37.5-50.1); Hemoglobin 8.7 g/dL (12.9-16.9); Immature Granulocytes % 1.1 % (0-4); Lymphocytes # 1.4 K/mcL (0.6-4.6); Lymphocytes % 10.8 %; Mean Corpuscular HGB Conc 32.1 g/dL (31.6-35.5); Mean Corpuscular Hemoglobin 30.2 pg (28.0-33.3); Mean Corpuscular Volume 94.1 fL (83.0-100.0); Mean Platelet Volume 9.2 fL (9.4-12.4); Monocytes # 1.2 K/mcL (0.0-1.3); Monocytes % 9.2 %; Neutrophils # 10.1 K/mcL (1.6-8.9); Platelet Count 450 K/mcL (140-400); Red Blood Count 2.88 M/mcL (4.19-5.50); Red Cell Distribution Width 14.7 % (11.5-14.5); Segmented Neutrophils % 75.8 %; White Blood Count 13.3 K/mcL (4.3-11.1)
[2020-07-11 02:04] LABS: BUN/Creatinine Ratio 14 (6-26); Blood Urea Nitrogen 14 mg/dL (8-23); Calcium 7.5 mg/dL (8.6-10.3); Carbon Dioxide 25 mEq/L (23-29); Chloride 106 mEq/L (98-107); Glucose 108 mg/dL (70-105); Magnesium 1.9 mg/dL (1.6-2.6); Osmolality,Calculated 287 (280-300); Potassium 3.2 mEq/L (3.5-5.1); Sodium 138 mEq/L (136-145); eGFR For African Americans > 60 (> 60); eGFR For Non-African Americans > 60 (> 60)
[2020-07-11] MEDS ORDERED: Calcium Gluconate 1gm/50mL 1 GM/50 ML BAG IVPB SCH (08:00)
[2020-07-11] MEDS: Aspirin Enteric Coated 81 MG Tablet PO SCH (08:01)
[2020-07-11] MEDS: BuPROPion XL (24 HR) 150 MG TABLET PO SCH (08:01)
[2020-07-11] MEDS: QUEtiapine Fumarate 25 MG TABLET PO SCH ×3 (08:01→20:12)
[2020-07-11] MEDS: Furosemide 40 MG/4 ML VIAL IVP SCH (08:01)
[2020-07-11] MEDS: polyethylene glycoL 3350 17 GM POWD.PACK PO SCH (08:03)
[2020-07-11] MEDS ORDERED: Potassium Chloride Elixir 20 MEQ/15 ML UDC PO ONE (09:10)
[2020-07-11 09:18] LABS: Arsenic <10.0 ug/L (<=12.0); Cadmium <1.0 ug/L (<=5.0); Mercury <2.5 ug/L (<=10.0)
[2020-07-11] MEDS: Calcium Gluconate 1gm/50mL 1 GM/50 ML BAG IVPB SCH ×2 (10:49→11:47)
[2020-07-11 14:35] LABS: ABG Base Excess 1 mEq/L (-2 to 3); ABG HCO3 25 mEq/L (21-27); ABG Oxygen Saturation 95 % (95-98); ABG PCO2 37 mmHg (35-45); ABG PH 7.45 pH Units (7.32-7.45); ABG PO2 69 mmHg (85-104); ABG TCO2 27 mEq/L (20-26)
[2020-07-11] MEDS: *HR* Rivaroxaban 10 MG TABLET PO SCH (15:49)
[2020-07-11] MEDS: Melatonin 3 MG TABLET PO SCH (20:12)
[2020-07-12] MEDS: Piperacillin/Tazobactam 3.375 GM in 0.9 % Sodium Chloride Mini Bag 100 ML IVPB SCH ×3 (00:26→17:34)
[2020-07-12 01:45] LABS: BUN/Creatinine Ratio 14 (6-26); Blood Urea Nitrogen 15 mg/dL (8-23); Calcium 8.2 mg/dL (8.6-10.3); Carbon Dioxide 25 mEq/L (23-29); Chloride 108 mEq/L (98-107); Glucose 102 mg/dL (70-105); Magnesium 2.3 mg/dL (1.6-2.6); Osmolality,Calculated 291 (280-300); Potassium 3.7 mEq/L (3.5-5.1); Sodium 140 mEq/L (136-145); eGFR For African Americans > 60 (> 60); eGFR For Non-African Americans > 60 (> 60)
[2020-07-12 02:04] LABS: % Iron Saturation 15 % (20-55); Ferritin 546 ng/mL (20-250); Iron 30 mcg/dL (65-175); Transferrin 143 mg/dL (203-362)
[2020-07-12 04:01] LABS: Basophils # 0.1 K/mcL (0.0-0.2); Basophils % 0.6 %; Eosinophils # 0.3 K/mcL (0.0-0.6); Eosinophils % 2.4 %; Hematocrit 28.6 % (37.5-50.1); Hemoglobin 8.9 g/dL (12.9-16.9); Immature Granulocytes % 0.7 % (0-4); Lymphocytes # 1.2 K/mcL (0.6-4.6); Lymphocytes % 11.3 %; Mean Corpuscular HGB Conc 31.1 g/dL (31.6-35.5); Mean Corpuscular Hemoglobin 30.4 pg (28.0-33.3); Mean Corpuscular Volume 97.6 fL (83.0-100.0); Mean Platelet Volume 8.8 fL (9.4-12.4); Monocytes # 1.1 K/mcL (0.0-1.3); Neutrophils # 8.2 K/mcL (1.6-8.9); Platelet Count 445 K/mcL (140-400); Red Blood Count 2.93 M/mcL (4.19-5.50); Red Cell Distribution Width 15.3 % (11.5-14.5)
[2020-07-12] MEDS ORDERED: Iron Sucrose Complex 400 MG in 0.9 % Sodium Chloride 250 ML IVPB ONE (08:10)
[2020-07-12] MEDS: Multivit/Ca/Min/Fe/FA 1 TAB TABLET PO SCH (09:23)
[2020-07-12] MEDS: Calcium Gluconate 1gm/50mL 1 GM/50 ML BAG IVPB SCH ×2 (09:23→11:10)
[2020-07-12] MEDS: QUEtiapine Fumarate 25 MG TABLET PO SCH ×2 (09:24→14:21)
[2020-07-12] MEDS: Aspirin Enteric Coated 81 MG Tablet PO SCH (09:24)
[2020-07-12] MEDS: BuPROPion XL (24 HR) 150 MG TABLET PO SCH (09:25)
[2020-07-12] MEDS: polyethylene glycoL 3350 17 GM POWD.PACK PO SCH (09:26)
[2020-07-12] MEDS: *HR* Rivaroxaban 10 MG TABLET PO SCH (17:35)
[2020-07-12] MEDS ORDERED: QUEtiapine Fumarate 25 MG TABLET PO SCH (21:00)
[2020-07-12] MEDS: Melatonin 3 MG TABLET PO SCH (21:05)
[2020-07-13] MEDS: Piperacillin/Tazobactam 3.375 GM in 0.9 % Sodium Chloride Mini Bag 100 ML IVPB SCH (00:22)
[2020-07-13 09:32] LABS: Basophils # 0.1 K/mcL (0.0-0.2); Basophils % 0.6 %; Eosinophils # 0.4 K/mcL (0.0-0.6); Eosinophils % 2.8 %; Hematocrit 29.6 % (37.5-50.1); Hemoglobin 9.3 g/dL (12.9-16.9); Immature Granulocytes % 0.9 % (0-4); Lymphocytes # 1.1 K/mcL (0.6-4.6); Lymphocytes % 9.3 %; Mean Corpuscular HGB Conc 31.4 g/dL (31.6-35.5); Mean Corpuscular Hemoglobin 30.2 pg (28.0-33.3); Mean Corpuscular Volume 96.1 fL (83.0-100.0); Mean Platelet Volume 8.9 fL (9.4-12.4); Monocytes # 1.2 K/mcL (0.0-1.3); Monocytes % 10.1 %; Neutrophils # 9.4 K/mcL (1.6-8.9); Platelet Count 511 K/mcL (140-400); Red Blood Count 3.08 M/mcL (4.19-5.50); Red Cell Distribution Width 15.7 % (11.5-14.5); Segmented Neutrophils % 76.3 %; White Blood Count 12.3 K/mcL (4.3-11.1)
[2020-07-13] MEDS: Aspirin Enteric Coated 81 MG Tablet PO SCH (10:03)
[2020-07-13] MEDS: BuPROPion XL (24 HR) 150 MG TABLET PO SCH (10:03)
[2020-07-13] MEDS: Multivit/Ca/Min/Fe/FA 1 TAB TABLET PO SCH (10:03)
[2020-07-13] MEDS: polyethylene glycoL 3350 17 GM POWD.PACK PO SCH (10:04)
[2020-07-13 11:07] LABS: BUN/Creatinine Ratio 13 (6-26); Blood Urea Nitrogen 16 mg/dL (8-23); Calcium 8.2 mg/dL (8.6-10.3); Carbon Dioxide 26 mEq/L (23-29); Chloride 108 mEq/L (98-107); Glucose 151 mg/dL (70-105); Magnesium 2.3 mg/dL (1.6-2.6); Osmolality,Calculated 294 (280-300); Phosphorous 2.1 mg/dL (2.7-4.5); Potassium 3.1 mEq/L (3.5-5.1); Sodium 140 mEq/L (136-145); eGFR For African Americans > 60 (> 60); eGFR For Non-African Americans > 60 (> 60)
[2020-07-13] MEDS ORDERED: Calcium Gluconate 1gm/50mL 1 GM/50 ML BAG IVPB SCH (13:30)
[2020-07-13 16:25] VITALS: BP 109/83
[2020-07-13] MEDS: *HR* Rivaroxaban 10 MG TABLET PO SCH (16:51)
== END 2020-07-13 17:33 | disposition home health service (06) | DRG 169 ==
LOC: EMEROOARM 12:31 → 2NNU 12:31 → SUATTDRO 06-30 15:43 → 2NNU 07-06 13:32 → 3NENU 07-11 16:29
PROVIDERS: ADMIT Internal Medicine; ATTEND Internal Medicine